=== PATIENT | male | born 1990 | race Caucasian/White ===

== ENCOUNTER 2017-07-28 03:12 | Emergency (ER) | payer SELFPAY ==
[~2017-07-28] VITALS: Ht 188 cm; Wt 81.6 kg
[2017-07-28 03:19] VITALS: BP_SYST 122
[2017-07-28 03:43] VITALS: BP_SYST 122
== END 2017-07-28 03:43 | disposition home or self-care (01) ==
LOC: SED 03:12
DX: Z02.89 Encounter for other administrative examinations (principal); F10.129 Alcohol abuse with intoxication, unspecified
CPT/HCPCS: 99283